=== PATIENT | female | born 1985 | race Caucasian/White ===

== ENCOUNTER 2017-05-06 11:19 | Emergency (ER) | payer OTHER ==
[~2017-05-06] VITALS: Ht 165.1 cm; Wt 99.8 kg
[~2017-05-06 11:19] MED LIST: ADVIL200 M1 PO; ATROVENT HFA12.9 GM INH; CYCLOBENZAPRINE10 MG PO; EXCEDRIN MIGRA1 EACH PO; PROMETHAZINE HC25 M1 PO; PROMETHAZINE-COD5 ML PO; VENTOLIN HFA18 GM INH
[2017-05-06] MEDS ORDERED: ACID CONTROL150 MG PO (11:49)
== END 2017-05-06 14:45 | disposition home or self-care (01) ==
LOC: ED 11:19
DX: F41.9 Anxiety disorder, unspecified (principal); J45.909 Unspecified asthma, uncomplicated; F17.200 Nicotine dependence, unspecified, uncomplicated; Z79.899 Other long term (current) drug therapy
CPT/HCPCS: 80053; 80176; 81001; 84703; 85025; 99283; G0480

== ENCOUNTER 2018-02-08 10:53 | Emergency (ER) | payer OTHER ==
[~2018-02-08] VITALS: Ht 165.1 cm; Wt 99.8 kg
[~2018-02-08 10:53] MED LIST changes: +ACID CONTROL150 MG PO
[2018-02-08] MEDS ORDERED: SPIRIVA18 MCG INH (11:14)
[2018-02-08] MEDS ORDERED: ONDANSETRON ODT8 MG PO (12:18)
[2018-02-08] MEDS ORDERED: PREDNISONE20 MG PO (12:18)
== END 2018-02-08 12:30 | disposition home or self-care (01) ==
LOC: ED 10:53
DX: J45.901 Unspecified asthma with (acute) exacerbation (principal); F41.9 Anxiety disorder, unspecified; I10 Essential (primary) hypertension; F17.200 Nicotine dependence, unspecified, uncomplicated; Z79.899 Other long term (current) drug therapy
CPT/HCPCS: 94640; 99284; J7512

== ENCOUNTER 2019-03-16 14:36 | Emergency (ER) | payer OTHER ==
[~2019-03-16] VITALS: Ht 165.1 cm; Wt 104.3 kg
[~2019-03-16 14:36] MED LIST changes: +ADVAIR 250-501 EACH INH; +ADVIL200 MG PO; +DOXYCYCLINE HY100 MG PO; +LISINOPRIL10 MG PO; +MUPIROCIN22 GM TOP; +NORCO 5-325 TA1 EACH PO; +ONDANSETRON ODT8 MG PO; +PAROXETINE HCL40 MG PO; +PAXIL40 MG PO; +PREDNISONE20 MG PO; +PRENATAL LOW I1 EACH PO; +SPIRIVA18 MCG INH
[2019-03-17] MEDS ORDERED: ONDANSETRON ODT8 MG PO (12:15)
[2019-03-17] MEDS ORDERED: DOXYCYCLINE HY100 MG PO (12:15)
[2019-03-17] MEDS ORDERED: IBU600 MG PO (12:15)
== END 2019-03-17 13:00 | disposition home or self-care (01) ==
LOC: ED 14:36
DX: F32.9 Major depressive disorder, single episode, unspecified (principal); I10 Essential (primary) hypertension; F17.200 Nicotine dependence, unspecified, uncomplicated; J45.909 Unspecified asthma, uncomplicated; Z91.048 Other nonmedicinal substance allergy status; Z79.899 Other long term (current) drug therapy
CPT/HCPCS: 36415; 80048; 80053; 80176; 81001; 84443; 84703; 85025; 96372; 99285; G0480; J1200; J1630

== ENCOUNTER 2020-03-09 23:19 | Emergency (ER) | payer OTHER ==
[~2020-03-09] VITALS: Ht 165.1 cm; Wt 86.2 kg
[~2020-03-09 23:19] MED LIST changes: +IBU600 MG PO
--- OUTSIDE RECORDS SUMMARY | 2020-03-09 23:22 | XMS ---
PreManage Notification: VANDA WRIGHT [employer] Head Events No recent Security Events currently on file CRITERIA MET - Group Notification CARE PROVIDERS LISHA BATISTA Nurse Practitioner: 03/18/2019-Current PHONE: [phone] [facility] has no Care Guidelines for this patient. E.DCesar VISIT COUNT (12 MO.) 2 [facility] TOTAL 2 NOTE: Visits indicate total known visits. ED/UCC VISIT TRACKING (12 MO.) 03/09/2020 23:20 [facility] TYPE: Emergency COMPLAINT: - ABDOMINAL PAIN 03/16/2019 14:36 [facility] TYPE: Emergency COMPLAINT: - MEDICAL CLEARANCE DIAGNOSES: - Major depressive disorder, single episode, unspecified - Other nonmedicinal substance allergy status - Suicidal ideations - Other retirement (current) drug therapy - Essential (primary) hypertension - Unspecified asthma, uncomplicated - Nicotine dependence, unspecified, uncomplicated INPATIENT VISIT TRACKING (12 MO.) No inpatient visits to display in this time frame [id number]
[2020-03-10] MEDS ORDERED: KEFLEX500 MG PO (04:24)
--- NOTE | 2020-03-10 12:39 | EKG ---
[facility] [address] [place], [place] [address] Signed Normal sinus rhythm Normal ECG No previous ECGs available Confirmed by KIMBERLY NEWELL MD ([id number] on 03/10/2020 12:39:08 PM Electronically Signed By: KIMBERLY NEWELL MD 03/10/20 1239 PATIENT NAME: VANDA WRIGHT DIANA ACOSTA Electrocardiogram DATE OF : 87 PHYSICIAN: KIMBERLY NEWELL MD REPORT #: [id number] REPORT IS CONFIDENTIAL AND NOT TO BE RELEASED WITHOUT AUTHORIZATION
== END 2020-03-10 04:33 | disposition home or self-care (01) ==
LOC: ED 23:19
DX: K80.20 Calculus of gallbladder without cholecystitis without obstruction (principal); N39.0 Urinary tract infection, site not specified; I10 Essential (primary) hypertension; J45.909 Unspecified asthma, uncomplicated; F17.200 Nicotine dependence, unspecified, uncomplicated; Z91.048 Other nonmedicinal substance allergy status; Z79.899 Other long term (current) drug therapy
CPT/HCPCS: 74018; 76705; 80053; 81001; 83690; 84703; 85025; 93005; 93010; 96361; 96374; 96375; 99284-25; J0696; J1200; J1630; J2405; J7030